=== PATIENT | male | born 1975 | race Caucasian/White ===

== ENCOUNTER → 2018-04-13 | Outpatient (CLI) | payer BC ==
[~2018-04-13] MED LIST: REGADENOSON 0.4 MG/5 ML DISP.SYRIN. IV ONE
--- NOTE | 2018-04-13 09:33 | PCVCIMAG ---
APPROVED REPORT Study performed: 04/13/2018 08:08:27 EXAM: Comprehensive 2D, Doppler, and color-flow Echocardiogram Patient Location: Echo lab Status: routine BSA: 2.24 HR: 66 bpmBP: 118/64 mmHg Rhythm: NSR Other Information Study Quality: Adequate Indications Abnormal ECG Dyspnea Chest Pain 2D Dimensions IVSd: 10.60 (7-11mm) LVDd: 46.67 mm PWd: 9.84 (7-11mm) LVDs: 32.47 (25-40mm) Left Atrium: 40.00 (27-40mm) Aortic Root: 30.35 mm LV Single Plane 4CH: 64.81 % LV Single Plane 2CH: 64.49 % Biplane EF: 66.4 % Volumes Left Atrial Volume (Systole) Single Plane 4CH: 41.35 mLSingle Plane 2CH: 52.14 mL LA ESV Index: 22.00 mL/m2 Aortic Valve AoV Peak Rashi.: 1.29 m/s AO Peak Gr.: 6.68 mmHgLVOT Max P.75 mmHg LVOT Max V: 1.09 m/s Mitral Valve E/A Ratio: 1.8 MV Decel. Time: 211.84 ms MV E Max Rashi.: 0.62 m/s MV A Rashi.: 0.34 m/s IVRT: 103.81 ms Pulmonary Valve PV Peak Rashi.: 1.07 m/sPV Peak Gr.: 4.56 mmHg Pulmonary Vein P Vein S: 0.37 m/sP Vein A: 0.27 m/s P Vein D: 0.47 m/sP Vein A Dur.: 121.1 msec P Vein S/D Ratio: 0.79 Tricuspid Valve TR Peak Rashi.: 2.33 m/s TR Peak Gr.: 21.73 mmHg Left Ventricle The left ventricle is normal size. There is normal LV segmental wall motion. There is normal left ventricular wall thickness. Left ventricular systolic function is normal. The left ventricular ejection fraction is within the normal range. LVEF is 60-65%. The left ventricular diastolic function is normal. Right Ventricle The right ventricle is normal size. The right ventricular systolic function is normal. Atria The left atrium size is normal. The right atrium size is normal. Aortic Valve The aortic valve is normal in structure. No aortic regurgitation is present. There is no aortic valvular stenosis. Mitral Valve The mitral valve is normal in structure. There is trace mitral valve regurgitation noted. No evidence of mitral valve stenosis. Tricuspid Valve The tricuspid valve is normal in structure. Trace tricuspid valve regurgitation noted. Pulmonic Valve The pulmonary valve is normal in structure. There is no pulmonic valvular regurgitation. Great Vessels The aortic root is normal in size. IVC is normal in size and collapses >50% with inspiration. Pericardium There is no pericardial effusion. There is no pleural effusion. <Conclusion> The left ventricle is normal size. LVEF is 60-65%. The aortic valve is normal in structure. The mitral valve is normal in structure. There is trace mitral valve regurgitation noted. The tricuspid valve is normal in structure. Trace tricuspid valve regurgitation noted. The pulmonary valve is normal in structure. There is no pulmonic valvular regurgitation. There is no pericardial effusion. There is no pleural effusion.
--- NOTE | 2018-04-13 11:46 | PCVCIMAG ---
APPROVED REPORT Imaging Protocol: Rest Tc-99m/Stress Tc-99m 1 day Study performed: 04/13/2018 09:27:58 Indication: Chest pain radiating to arm and back, Dyspnea Stress Nurse: Kayla Hernández RN, Marzena Vanegas RN GA Tech:Bijal GIULIANA FaustinMT Ht: 6 ft 0 in Wt: 225 lbs BSA: 2.24 m2 HR: 65 bpm BP: 128/72 mmHg BMI: 30.5 Rhythm: Sinus Rhythm, nonspecific T abnormalities Medical History Medical History: Former Smoker, Pulmonary Emboli, Factor V Leiden Medications: Lisinopril, Albuterol, Xarelto Allergies: No known drug allergies Pretest Chest Pain Characteristics: No chest pain Exercise History: Physically active Physical Disabilities: Recent PE (on exercise restriction) Resting Data Rest SPECT myocardial perfusion imaging was performed in supine position 45 minutes following the intravenous injection of 11 mCi of Tc-99m Sestamibi. Time of rest injection: 0840 Date: 04/13/2018 Administration Route: IV Administration Site: Left AC Pharmacologic Stress Pharmacologic stress test was performed by injecting Regadenoson 0.4 mg IV push over 10-15 seconds immediately followed by the intravenous injection of 32.4 mCi of Tc-99m Sestamibi. Time of stress injection: 1000 Date: 04/13/2018 Administration Route: IV Administration Site: Left AC Gated Stress SPECT was performed 45 minutes after stress injection. The images were gated to evaluate regional wall motion and calculate left ventricular ejection fraction. Stress Test Details Stress Test: Pharmacologic stress was paired with low level exercise. Reason for pharmacologic stress test: recent pulmonary emboli. HRMax Heart Rate (APMHR): 179 bpm Resting HR: 65 bpmTarget HR (85% APMHR): 152 bpm Max HR Achieved: 114 bpm % of APMHR: 63 Recovery HR: 85 bpm BP Resting BP: 128/72 mmHg Max BP: 156/60 mmHg Recovery BP: 143/73 mmHg ECG Resting ECG: Sinus Rhythm, nonspecific T abnormalities Stress ECG: Sinus Tachycardia, nonspecific T abnormalities Recovery ECG: Sinus Rhythm, nonspecific T abnormalities Clinical Reason for Termination: Completed protocol Stress Symptoms: None Exercise duration: 4 min 00 sec Exercise capacity: 1.6 METs Symptoms resolved with caffeine. Stress ECG Conclusion 1. Adequate response intravenous Lexiscan 2. Adequate heart rate for ECG diagnosis Study Data Post stress, the left ventricular ejection was 73%.. SSS: 0 SRS: 0 SDS: 0 TID = 0.80. Perfusion There is a large area of moderately reduced uptake in the entire segment of the inferior wall which is seen on the stress images as well as the resting images. This area thickens and moves normally and is most consistent with attenuation artifact. Wall Motion Normal left ventricular wall motion. Nuclear Conclusion ECG Findings: non-diagnostic Clinical Findings: negative for ischemia Nuclear Findings: negative for ischemia Exercise Capacity: not assessed Left Ventricular Function: normal 1. Low risk study Interpreted by: Katrina Puckett MD Electronically Approved: 04/13/2018 11:45:55 <Conclusion> 1. Adequate response intravenous Lexiscan 2. Adequate heart rate for ECG diagnosis
== END | disposition home or self-care (01) ==
LOC: PCVCIMAG 08:54
PROVIDERS: ATTEND Internal Medicine
DX: R94.31 Abnormal electrocardiogram [ECG] [EKG] (principal); R06.00 Dyspnea, unspecified; R07.9 Chest pain, unspecified; I10 Essential (primary) hypertension; E78.5 Hyperlipidemia, unspecified; I82.409 Acute embolism and thrombosis of unspecified deep veins of unspecified lower extremity; I26.99 Other pulmonary embolism without acute cor pulmonale; D68.51 Activated protein C resistance; Z87.891 Personal history of nicotine dependence
CPT/HCPCS: 78452; 93017; 93306; A9500; J2785